=== PATIENT | female | born 1940 | race Caucasian/White ===

== ENCOUNTER → 2018-01-09 08:27 | Outpatient (CLI) | payer MEDICARE, SELFPAY ==
[2018-01-09 10:34] LABS: AST(SGOT) 15 U/L (15-37); Alanine Aminotransfer ALT/SGPT 22 U/L (13-56); Albumin, Serum 3.9 g/dL (3.2-5.0); Alkaline Phosphatase 73 U/L (45-117); Bilirubin, Direct 0.12 mg/dL (0.00-0.30); Cholesterol 96 mg/dL (200); Globulin 3.1 g/dL (2.2-4.2); High Density Lipoprotein 54 mg/dL; Triglycerides 60 mg/dL; Very Low Density Lipoprotein 12 mg/dL (5-40)
== END ==
PROVIDERS: Family Provider Internal Medicine; PCP Internal Medicine; Visit Provider Physician Assistant Medical
DX: E78.5 Hyperlipidemia, unspecified (principal); Z79.899 Other long term (current) drug therapy
CPT/HCPCS: 36415; 80061; 80076

== ENCOUNTER → 2019-02-20 09:53 | Outpatient (CLI) | payer MEDICARE, SELFPAY ==
[2018-02-21 10:02] VITALS: BMI 20.5
[2019-02-20 12:47] LABS: AST(SGOT) 15 U/L (15-37); Alanine Aminotransfer ALT/SGPT 25 U/L (13-56); Albumin, Serum 3.9 g/dL (3.2-5.0); Alkaline Phosphatase 70 U/L (45-117); Bilirubin, Direct 0.13 mg/dL (0.00-0.30); Cholesterol 131 mg/dL (200); Globulin 3.1 g/dL (2.2-4.2); High Density Lipoprotein 59 mg/dL; Triglycerides 57 mg/dL; Very Low Density Lipoprotein 11 mg/dL (5-40)
== END ==
PROVIDERS: Family Provider Internal Medicine; PCP Internal Medicine; Referring Provider Physician Assistant Medical; Visit Provider Physician Assistant Medical
DX: E78.5 Hyperlipidemia, unspecified (principal)
CPT/HCPCS: 36415; 80061; 80076

== ENCOUNTER → 2019-03-31 09:57 | Outpatient (CLI) | payer MEDICARE, SELFPAY ==
[2019-02-25 09:33] VITALS: BMI 22.6
--- NOTE | 2019-03-31 09:59 | ECHOD_ITS ---
Reason For Study: HTN Procedure This was a 2D Doppler, Color Flow transthoracic echocardiogram. Exam performed in department. Left Ventricle Normal LV size. Left ventricular systolic function is normal. The estimated ejection fraction is 60 %. Stage 1 diastolic dysfunction. No regional wall motion abnormalities noted. Right Ventricle Normal RV size. Normal systolic function. Atria Normal left atrium. Normal right atrium. Mitral Valve There is mild to moderate mitral annular calcification. Mild-Moderate (1-2+) eccentric mitral valve insufficiency. Tricuspid Valve Normal tricuspid valve. Mild (1+) tricuspid valve insufficiency. Pulmonary artery systolic pressure is 36 mmHg. Aortic Valve Trisinus/trileaflet aortic valve. Pulmonic Valve The pulmonic valve is not well visualized. Great Vessels Normal aortic root. The pulmonary artery is normal size. Normal inferior vena cava. Pericardium/Pleural No pericardial effusion. MMode/2D Measurements & Calculations LVIDd: 3.7 cm IVSd: 0.86 cm Ao root diam: 2.7 cm LVIDs: 2.0 cm LVPWd: 0.95 cm LA dimension: 3.3 cm RVDd: 2.8 cm FS: 46.4 % LAV(MOD-bp): 53.0 ml LA A4 area: 19.8 cm2 RA A4 area: 14.2 cm2 LAV(MOD-bp) Indexed: 39.9 ml/m2 LAV(MOD-sp2): 44.5 ml LAV(MOD-sp4): 55.5 ml Time Measurements MV dec time: 0.23 sec Doppler Measurements & Calculations MV E max albert: 99.2 cm/sec Lat Peak E' Albert: 6.4 cm/sec Med Peak E' Albert: 4.8 cm/sec MV A max albert: 108.4 cm/sec E/E' lat: 15.5 E/E' med: 20.5 MV E/A: 0.92 MV V2 max: 122.3 cm/sec MV P1/2t max albert: 112.7 cm/sec Ao V2 max: 169.5 cm/sec MV max P.0 mmHg MV P1/2t: 99.7 msec Ao max P.5 mmHg MV V2 mean: 72.1 cm/sec MV dec slope: 331.1 cm/sec2 MV mean P.4 mmHg MVA(P1/2t): 2.2 cm2 MV V2 VTI: 40.3 cm LV V1 max: 90.1 cm/sec PA V2 max: 93.4 cm/sec TR max albert: 281.7 cm/sec LV V1 max P.2 mmHg TR max P.7 mmHg Interpretation Summary Normal LV size. Left ventricular systolic function is normal. The estimated ejection fraction is 60 %. Stage 1 diastolic dysfunction. There is mild to moderate mitral annular calcification. Mild-Moderate (1-2+) eccentric mitral valve insufficiency. Ordering Physician: Arcenio Franklin Referring Physician: Rob Mendoza M.D. Performed By: Ridge Johnson RCS
== END ==
PROVIDERS: Family Provider Internal Medicine; PCP Internal Medicine; Referring Provider Internal Medicine Cardiovascular Disease; Visit Provider Internal Medicine Cardiovascular Disease
DX: I25.10 Atherosclerotic heart disease of native coronary artery without angina pectoris (principal)
CPT/HCPCS: 93306

== ENCOUNTER 2020-05-01 11:08 | Emergency (ER) | payer MEDICARE, SELFPAY ==
[2020-02-26 10:27] VITALS: BMI 21.5
[2020-05-01 11:10] VITALS: BP 144/101; PULSE 81; RESP 17; TEMP 36.7; O2SAT 96; BMI 20.3
--- NOTE | 2020-05-01 11:33 | CT_ITS ---
We are attempting to reach an attending provider to discuss findings. An addendum with communication details will be sent when the communication is complete. STUDY: CT ABDOMEN AND PELVIS WITHOUT CONTRAST REASON FOR EXAM: Female, 79 years old. RT SIDE ABD PAIN X 2 DAYS, ADDITIONAL IMAGES D/T MOTION RADIATION DOSAGE (If Supplied By Facility): CTDIvol = ( 11.53 ) mGy, DLP = ( 413.16 ) mGycm TECHNIQUE: Transaxial images were obtained from the dome of the diaphragm to the symphysis pubis without oral contrast, and without intravenous contrast. Sagittal and coronal images were reconstructed. Individualized dose optimization techniques were used for this CT. COMPARISON: None. FINDINGS: The visualized lung bases are unremarkable. There is decreased attenuation of the liver consistent with steatosis. Normal gallbladder and extrahepatic biliary system. Normal spleen. Normal pancreas. Normal bilateral adrenal glands. Unremarkable right kidney. Unremarkable left kidney. Normal visualized stomach. Normal small intestine. Normal colon. Evaluation of the appendix region is limited by motion artifact. The appendix is enlarged at 9 mm (axial image #66 series 2) and fluid-filled distally. There is no demonstrated periappendiceal stranding. There is atherosclerotic calcifications of the abdominal aorta, Normal urinary bladder. Normal abdominal wall. There are diffuse degenerative changes of the visualized lumbar spine. CT/Abdomen/Pelvis W IV Cont ONLY IMPRESSION: Minimally enlarged appendix at 9 mm. Appendicitis is not excluded. Severe aortoiliac atherosclerosis. Electronically Signed: Marnie Chiang MD at 13:33 EDT Tel , Service support ,
--- NOTE | 2020-05-01 11:38 | ED.VIS.GEN ---
History of Present Illness Chief Complaint: Abd Pain Onset: Yesterday Narrative: 79-year-old female past medical history of hypertension, hyperlipidemia, type 2 diabetes, CAD with stents presents with complaints of abdominal pain. The last 2 mornings she has had right lower abdominal pain that radiates to the side. Pain feels cramping. It started again this morning on awakening. While she was having a bowel movement she felt nauseous. She states she is typically constipated and takes a stool softener. She has decreased appetite today and has not eaten anything. She is keeping down fluids. Denies fevers, chills, vomiting, cough, chest pain, shortness of breath, urinary symptoms, or blood in stool. Previous abdominal surgery includes tubal ligation. Past Medical History - Allergies and Home Meds Allergies/Adverse Reactions: Allergies amoxicillin Allergy (Verified 05/01/20 11:09) Unknown codeine Allergy (Verified 05/01/20 11:09) Unknown estradiol Allergy (Verified 05/01/20 11:09) Other Primary Care Physician: Rob Mendoza MD [Primary Care Provider] - Past Medical History: - - Pretension, hyperlipidemia, CAD, type 2 diabetes Smoking Status: Former smoker Review of Systems General: Denies: Chills, Fever, Sweats Eyes: Denies: Visual changes - bilaterally, Diplopia ENT: Denies: Rhinorrhea, Sore throat Cardiovascular: Denies: Chest pain, Palpitations Respiratory: Denies: Dyspnea, Cough, Dyspnea on exertion Gastrointestinal: Reports: Abdominal pain, Nausea, Constipation. Denies: Vomiting, Diarrhea, Melena, Hematochezia Genitourinary: Denies: Dysuria, Hematuria, Frequency Musculoskeletal: Denies: Myalgias Skin: Denies: Rash Neurological: Denies: Headache, Weakness Psych: Reports: Depression Physical Exam Vital Signs/Narrative: Vital Signs Temp Pulse Resp BP Pulse Ox 05/01/20 11:10 98.0 F 81 17 144/101 H 96 Inital Vital Signs reviewed: Yes General: Well nourished, Well developed, No Acute Distress Head: Normocephalic, Atraumatic Eyes: Perrl, EOMI ENT: Moist mucous membranes, No rhinorrhea Neck: Supple, Nontender Cardiovascular: Regular rate, Regular rhythm, No murmurs Respiratory: No distress, CTA bilaterally, Chest nontender Abdomen: Soft, Tender, - - Mild right lower quadrant tenderness. Soft with no guarding or rebound. Negative for: Guarding, Rebound tenderness Back: Normal Inspection Extremities: No edema Skin: Normal color, No rash Neurological: Alert, Oriented x3, Cranial nerves II-XII grossly intact Psychological: Normal affect, Normal Mood Diagnostic/Tx/Re-eval Clinical Impression(s) from Imaging Studies Abdomen/Pelvis CT 05/01/20 11:33 IMPRESSION: Minimally enlarged appendix at 9 mm. Appendicitis is not excluded. Severe aortoiliac atherosclerosis. Electronically Signed: Marnie Chiang MD at 13:33 EDT Tel , Service support , ADDENDUM: 05/01/20 1345 IMPRESSION: Minimally enlarged appendix at 9 mm. Appendicitis is not excluded. Severe aortoiliac atherosclerosis. N.B. : The above information has been verbally conveyed by Marnie Chiang MD to RICHARD Del [place], on 05/01/2020 13:38:07 (ET). Electronically Signed: Marnie Chiang MD at 13:33 EDT Tel , Service support , Abdomen CT 05/01/20 14:04 IMPRESSION: 1. Normal CT appearance of the appendix (no appendiceal wall thickening, normal contrast filling, no periappendiceal stranding). Electronically Signed: Rafa Medina MD ([place]) at 16:45 EDT , Service support , Laboratory Data 05/01/20 05/01/20 05/01/20 12:10 12:16 12:16 WBC 9.6 RBC 4.46 Hgb 15.3 H Hct 44.6 MCV 100.0 H MCH 34.3 H MCHC 34.3 RDW Std Deviation 47.7 H RDW Coeff of Louise 12.8 Plt Count 341 MPV 9.4 Immature Gran % (Auto) 0.400 Neut % (Auto) 79.0 H Lymph % (Auto) 15.0 L [place] % (Auto) 4.7 Eos % (Auto) 0.5 Baso % (Auto) 0.4 Absolute Neuts (auto) 7.6 Absolute Lymphs (auto) 1.44 Nucleated RBC % 0 Sodium 136 Potassium 3.8 Chloride 99 Carbon Dioxide 30.0 Anion Gap 7 BUN 10 Creatinine 0.62 Estim Creat Clear Calc 32.87 Est GFR (MDRD) Af Amer 119 Est GFR (MDRD) Non-Af 99 BUN/Creatinine Ratio 16.1 Glucose 159 H Calcium 9.7 Total Bilirubin 0.40 AST 13 L ALT 19 Alkaline Phosphatase 81 Total Protein 7.8 Albumin 4.0 Globulin 3.8 Albumin/Globulin Ratio 1.1 Lipase 79 Urine Color Yellow Urine Clarity Clear Urine pH 7.0 Ur Specific [place] 1.005 Urine Protein Negative Urine Glucose (UA) Normal Urine Ketones Negative Urine Occult Blood Negative Urine Nitrite Negative Urine Bilirubin Negative Urine Urobilinogen Normal Ur Leukocyte Esterase Negative Urine RBC 0-5 SEEN Urine WBC 0 SEEN Ur Squamous Epith Cells 0-5 SEEN Urine Bacteria 0 SEEN Urine Mucus 0 SEEN POC Glucose 05/01/20 13:07 WBC RBC Hgb Hct MCV MCH MCHC RDW Std Deviation RDW Coeff of Louise Plt Count MPV Immature Gran % (Auto) Neut % (Auto) Lymph % (Auto) [place] % (Auto) Eos % (Auto) Baso % (Auto) Absolute Neuts (auto) Absolute Lymphs (auto) Nucleated RBC % Sodium Potassium Chloride Carbon Dioxide Anion Gap BUN Creatinine Estim Creat Clear Calc Est GFR (MDRD) Af Amer Est GFR (MDRD) Non-Af BUN/Creatinine Ratio Glucose Calcium Total Bilirubin AST ALT Alkaline Phosphatase Total Protein Albumin Globulin Albumin/Globulin Ratio Lipase Urine Color Urine Clarity Urine pH Ur Specific [place] Urine Protein Urine Glucose (UA) Urine Ketones Urine Occult Blood Urine Nitrite Urine Bilirubin Urine Urobilinogen Ur Leukocyte Esterase Urine RBC Urine WBC Ur Squamous Epith Cells Urine Bacteria Urine Mucus POC Glucose 146 H - Medical Decision Making Patient appears well and nontoxic. Vital signs within normal limits. She has RLQ tenderness on exam but no peritoneal signs. Labs show no leukocytosis or bands and are otherwise unremarkable. CT shows minimally enlarged appendix at 9 mm and cannot exclude appendicitis. Results were discussed with general surgery who felt that with minimal pain and no WBC count this may not be appendicitis. She does have a large stool burden and admits to constipation but did have a BM this morning. Surgery recommended CT with oral contrast which will be obtained. CT showed normal appearance of the appendix. Her pain may be due to constipation as there was a moderate stool burden on CT. She was given magnesium citrate and advised to follow up with PCP. Discussed return precautions. She was agreeable and discharged in stable condition. ED Disposition - Plan for ED Patient: Disposition: Home or Assisted Living Diagnosis: Abdominal pain, Constipated Instructions: ED Abdominal Pain Unkn Cause Fem, ED Constipation Prescriptions: Magnesium Citrate [Citrate Of Magnesia] 300 ml PO X1 #300 ml Transmission Status: Received by [id number] Referrals: Rob Mendoza MD [Primary Care Provider] -
[2020-05-01 12:13] VITALS: RESP 17
[2020-05-01 12:30] LABS: Absolute Lymphocyte Count 1.44 X10^3/uL (0.83-4.51); Absolute Neutrophil Count 7.6 X10^3/uL (2.0-7.7); Basophil# 0.04 X10^3/uL; Basophil% 0.4 % (0-1); Eosinophil# 0.05 X10^3/uL; Eosinophils% 0.5 % (0-5); Hematocrit 44.6 % (37-47); Hemoglobin 15.3 g/dL (12.0-15.0); Lymphocyte # 1.44 X10^3/ul (4.0); Mean Corp Hgb Conc 34.3 g/dL (32-36); Mean Corpuscular Hgb 34.3 pg (27.0-32.0); Mean Platelet Vol. 9.4 fl (6.2-12.0); Monocyte# 0.45 X10^3/uL; Monocyte% 4.7 % (0-10); NRBC Flagged by Analyzer 0 % (0-5); Platelet Count 341 K/mm3 (150-450); RBC Distribution Width CV 12.8 % (11.6-14.6); RBC Distribution Width SD 47.7 fl (35.1-43.9); Red Blood Count 4.46 M/mm3 (4.2-5.4); White Blood Count 9.6 K/mm3 (4.4-11.0)
[2020-05-01 12:45] LABS: ALB/GLOB Ratio 1.1 RATIO (0.9-2.4); AST(SGOT) 13 U/L (15-37); Alanine Aminotransfer ALT/SGPT 19 U/L (13-56); Alkaline Phosphatase 81 U/L (45-117); Anion Gap 7 (5-15); BUN 10 mg/dL (7-18); BUN/Creat Ratio 16.1 RATIO (10-20); Calcium,Total 9.7 mg/dL (8.5-10.1); Chloride 99 mmol/L (98-107); Creatinine, Serum 0.62 mg/dL (0.55-1.02); EST Glomerular Filtration Rate 99 mL/min (>60); Est Glom Filt Rate - Afr Amer 119 mL/min (>60); Estimated Creatinine Clearance 32.87 ml/min; Globulin 3.8 g/dL (2.2-4.2); Glucose 159 mg/dL (74-106); Lipase 79 U/L (73-393); Potassium 3.8 mmol/L (3.5-5.1); Protein, Total 7.8 g/dL (6.4-8.2); Sodium Level 136 mmol/L (136-145)
[2020-05-01 13:11] LABS: Bedside Glucose 146 mg/dL (70-110)
[2020-05-01 13:22] LABS: Bacteria 0 SEEN /hpf (None Seen); Mucous, Urine 0 SEEN /hpf (<or=2+); White Blood Cells 0 SEEN /hpf (0-5)
[2020-05-01 13:49] LABS: Color, Urine Yellow (Yellow); Glucose, Dipstick Normal (Normal); Ketone-Dipstick Negative (Negative); Leukocyte Esterase-Dipstick Negative /ul (Negative); Nitrite-Dipstick Negative (Negative); Occult Blood-Urine Negative /ul (Negative); Protein-Dipstick Negative (Negative); Specific Gravity, Urine 1.005 (1.002-1.030); Urine Bilirubin Dipstick Negative (Negative); Urine Clarity Clear (Clear); Urine Urobilinogen Normal (Normal)
[2020-05-01 13:56] LABS: Red Blood Cells-Urine 0-5 SEEN /hpf (0-5); Squamous Epithelial Cells - UA 0-5 SEEN /hpf (5-10)
--- NOTE | 2020-05-01 14:04 | CT_ITS ---
STUDY: CT ABDOMEN AND PELVIS WITHOUT CONTRAST REASON FOR EXAM: Female, 79 years old. R/O APPY, PLEASE COMPARE TO PRIOR SCAN DONE TODAY RADIATION DOSAGE (If Supplied By Facility): CTDIvol = ( 6.04 ) mGy, DLP = ( 232.51 ) mGycm TECHNIQUE: Transaxial images were obtained from the dome of the diaphragm to the symphysis pubis with oral contrast, and without intravenous contrast. Sagittal and coronal images were reconstructed. Individualized dose optimization techniques were used for this CT. COMPARISON: None. FINDINGS: The visualized lung bases are unremarkable. The visualized portions of the heart are within normal limits. Normal liver. Normal gallbladder and extrahepatic biliary system. Normal spleen. Normal pancreas. Normal bilateral adrenal glands. Normal right kidney. Normal left kidney. Normal visualized stomach. Normal small intestine. Normal colon. Normal caliber of the appendix measuring 6.3 mm, filled with contrast and air. No periappendiceal stranding. There is diffuse atherosclerotic calcification of the abdominal aorta, without a demonstrated aneurysm. Normal inferior vena cava. Normal retroperitoneum. Normal urinary bladder. There is atrophy of the uterus. Normal abdominal wall. There degenerative changes of the lumbar spine. CT/Abdomen/Pel W ORAL Cont Only IMPRESSION: 1. Normal CT appearance of the appendix (no appendiceal wall thickening, normal contrast filling, no periappendiceal stranding). Electronically Signed: Rafa Medina MD ([place]) at 16:45 EDT , Service support ,
[2020-05-01 16:49] VITALS: BP 187/67; PULSE 80; RESP 17; TEMP 36.8; O2SAT 96
[2020-05-01 17:26] VITALS: BP 187/75; PULSE 80; RESP 17; O2SAT 96
== END 2020-05-01 17:28 | disposition home or self-care (01) ==
PROVIDERS: Emergency Provider Physician Assistant; PCP Internal Medicine
DX: R10.9 Unspecified abdominal pain (principal); K59.00 Constipation, unspecified; I25.10 Atherosclerotic heart disease of native coronary artery without angina pectoris; Z95.5 Presence of coronary angioplasty implant and graft; Z87.891 Personal history of nicotine dependence
CPT/HCPCS: 74176; 74177; 80053; 81001; 82962; 83690; 85025; 99284; Q9967; A4216

== ENCOUNTER → 2020-06-08 08:45 | Outpatient (CLI) | payer MEDICARE, SELFPAY ==
--- NOTE | 2020-06-08 08:47 | RAD_ITS ---
STUDY: X-RAY - ESOPHAGUS (BARIUM SWALLOW) with FLUOROSCOPY REASON FOR EXAM: Female, 80 years old. Dysphagia TECHNIQUE: 16 view(s) of the esophagus were obtained following swallowing of barium. FLUOROSCOPY TIME (if supplied): (0:26) minutes/seconds COMPARISON: None. FINDINGS: There is no demonstrated esophageal foreign body. There is no demonstrated stricture or mucosal abnormality. Normal gastroesophageal junction, without a demonstrated hiatal hernia. The patient ingested a 12 mm tablet of barium without any difficulty. There is atherosclerotic calcification of the aortic arch with tortuosity of the descending aorta. Normal visualized pulmonary parenchyma. There are degenerative changes of the visualized thoracic spine. RAD/Esophagus Single Contrast IMPRESSION: Normal plain film x-ray examination (barium swallow) of the esophagus. Electronically Signed: Gus Odom, at 15:19 EDT , Service support ,
== END ==
PROVIDERS: PCP Internal Medicine; Referring Provider Nurse Practitioner Adult Health; Visit Provider Nurse Practitioner Adult Health
DX: R13.10 Dysphagia, unspecified (principal); K21.9 Gastro-esophageal reflux disease without esophagitis
CPT/HCPCS: 74220

== ENCOUNTER → 2020-08-19 12:53 | Outpatient (CLI) | payer MEDICARE, SELFPAY ==
--- NOTE | 2020-08-19 12:55 | CDU_ITS ---
Reason For Study: Carotid stenosis Rt. Velocities/BP Lt. Velocities/BP Prox CCA 63/9.5 cm/sec. Prox CCA 68.3/9 cm/sec. Mid CCA 55.2/9.5 cm/sec. Mid CCA 64.8/9 cm/sec. Dist CCA 44.3/10.2 cm/sec. Dist CCA 50/9.9 cm/sec. Prox ICA 86.4/18.8 cm/sec. Prox ICA 138.9/20.4 cm/sec. Mid ICA 56.4/14.6 cm/sec. Mid ICA 73.6/15.2 cm/sec. Dist ICA 58.6/14.6 cm/sec. Dist ICA 48.2/12. cm/sec. Rt. ICA/CCA = 1.6. Lt. ICA/CCA = 2.14. Prox ECA 155.8/7.9 cm/sec. Prox ECA 147.7 cm/sec. Rt. Vert. 29/5.5 cm/sec. Lt. Vert. 28.4/5.2 cm/sec. Right Extracranial There is homogeneous, smooth atherosclerotic plaque noted in the right common carotid artery. There is heterogeneous, irregular atherosclerotic plaque noted in the right internal carotid artery. There is heterogeneous, irregular atherosclerotic plaque noted in the right external carotid artery. Antegrade flow is noted in the right vertebral artery. Left Extracranial There is heterogeneous, irregular atherosclerotic plaque noted in the left common carotid artery. There is heterogeneous, irregular atherosclerotic plaque noted in the left internal carotid artery. The atherosclerotic plaque causes acoustic shadowing. There is heterogeneous, irregular atherosclerotic plaque noted in the left external carotid artery. Antegrade flow is noted in the left vertebral artery. Procedure Carotid Duplex 24211. This is a Carotid Duplex examination using B-mode, color flow and specral Doppler. Exam performed in department. Interpretation Summary Irregular calcific plaque at the proximal right internal and external carotid arteries Less than 50% stenosis right internal carotid artery Less than 50% stenosis right external carotid artery Irregular calcific plaque distal left common carotid artery and proximal left internal and external carotid arteries with acoustic shadowing. 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 Performed By: Wendy Georges RVT
== END ==
PROVIDERS: PCP Internal Medicine; Referring Provider Internal Medicine Cardiovascular Disease; Visit Provider Internal Medicine Cardiovascular Disease
DX: I65.29 Occlusion and stenosis of unspecified carotid artery (principal); I25.10 Atherosclerotic heart disease of native coronary artery without angina pectoris; E78.5 Hyperlipidemia, unspecified; I10 Essential (primary) hypertension; R42 Dizziness and giddiness
CPT/HCPCS: 93880

== ENCOUNTER → 2020-11-20 10:10 | Outpatient (CLI) | payer MEDICARE, SELFPAY ==
[2020-11-20 11:54] LABS: AST(SGOT) 22 U/L (15-37); Alanine Aminotransfer ALT/SGPT 29 U/L (13-56); Albumin, Serum 3.9 g/dL (3.2-5.0); Alkaline Phosphatase 73 U/L (45-117); Bilirubin, Direct 0.15 mg/dL (0.00-0.30); Cholesterol 121 mg/dL (200); Globulin 3.9 g/dL (2.2-4.2); High Density Lipoprotein 52 mg/dL; Protein, Total 7.8 g/dL (6.4-8.2); Triglycerides 75 mg/dL; Very Low Density Lipoprotein 15 mg/dL (5-40)
== END ==
PROVIDERS: PCP Internal Medicine; Visit Provider Nurse Practitioner Family
DX: E78.00 Pure hypercholesterolemia, unspecified (principal); E78.5 Hyperlipidemia, unspecified
CPT/HCPCS: 36415; 80061; 80076

== ENCOUNTER 2021-07-27 10:45 | Emergency (ER) | payer MEDICARE, SELFPAY ==
[2021-07-27 10:46] VITALS: BP 154/78; PULSE 85; RESP 16; TEMP 36.2; O2SAT 97; BMI 19.1
[2021-07-27] MEDS: Lidocaine 1% /Epi 1:100 (20ml) 20 ML Vial INFILT (11:08)
--- NOTE | 2021-07-27 11:09 | EDS_ITS ---
HPI History of Present Illness Chief Complaint: Laceration Detail of Chief Complaint: Laceration left thumb Informant: patient Narrative Narrative: Patient presents to the emergency department complaint of a laceration to her left thumb that occurred yesterday morning. Patient states that she was using scissors and accidentally cut herself. Patient is right-hand dominant. She is unsure of her last tetanus shot. Patient states that she used peroxide on her finger and then used Magic skin glue to try to approximate the wound edges and applied a dressing. Patient woke up this morning and thought it was still bleeding so she comes in for evaluation. Patient states she is on aspirin and Plavix for history of coronary artery disease. [facility] Medical History (Updated 07/27/21 @ 11:[address] Alexx Valdez, ) Atherosclerotic heart disease of [place] coronary artery without angina pectoris Carotid artery stenosis Constipation Diabetes Essential (primary) hypertension HLD (hyperlipidemia) Rash Home Medications aspirin 81 mg PO DAILY@0800 11/24/16 [History Last Taken Unknown] lorazepam 0.5 mg PO DAILY PRN PRN 11/24/16 [History Last Taken Unknown] nitroglycerin 0.4 mg sublingual tablet 0.4 mg SUBLINGUAL Q5-15M PRN #30 tab 02/21/18 [Rx Last Taken Unknown] diclofenac potassium 50 mg tablet 50 mg PO BID tab 02/26/20 [History Last Taken Unknown] famotidine 40 mg tablet 40 mg PO BID tab 02/26/20 [History Last Taken Unknown] magnesium citrate 300 ml PO X1 #300 ml 05/01/20 [Rx Last Taken Unknown] amlodipine 5 mg tablet 5 mg PO BID #180 tab 12/16/20 [Rx Last Taken Unknown] ezetimibe 10 mg tablet 10 mg PO DAILY #90 tab 02/04/21 [Rx Last Taken Unknown] melatonin 5 mg capsule mg PO QHS PRN cap 02/22/21 [History Last Taken Unknown] clopidogrel 75 mg tablet 75 mg PO DAILY #90 tab 03/08/21 [Rx Last Taken Unknown] lisinopril 20 mg tablet See Rx Instructions .ROUTE .COMPLEX #180 tab 06/13/21 [Rx Last Taken Unknown] metformin 1,000 mg tablet 1,000 mg PO BID 06/17/21 [History Last Taken Unknown] atenolol 50 mg tablet 50 mg PO DAILY #90 tab 06/28/21 [Rx Last Taken Unknown] isosorbide mononitrate 30 mg tablet,extended release 24 hr See Rx Instructions .ROUTE .COMPLEX #90 tab 07/11/21 [Rx Last Taken Unknown] atorvastatin 40 mg tablet 40 mg PO QHS #90 tab 07/13/21 [Rx Last Taken Unknown] Allergy/AdvReac Type Severity Reaction Status Date / Time amoxicillin Allergy Unknown Verified 07/27/21 10:46 codeine Allergy Unknown Verified 07/27/21 10:46 estradiol Allergy Other Verified 07/27/21 10:46 Family History Father CAD (coronary artery disease) Diabetes Mother CAD (coronary artery disease) CVA (cerebral vascular accident) Diabetes Sister Diabetes CAD (coronary artery disease) Brother CAD (coronary artery disease) Surgical History History of coronary angioplasty (1996) History of coronary artery stent placement (12/26/05) Social History Smoking Status: Current some day smoker tobacco type: cigarettes ROS ROS ED Constitutional Constitutional ED: Reports systems reviewed and no addt'l complaints, except as documented; Denies body ache(s), change in weight or chills Eyes Eyes: Denies acute decrease in peripheral vision, change in vision, double vision or loss of vision ENT ENT ED: Reports none; Denies ear pain, lip swelling, loss taste/smell, neck pain, otalgia or sore throat Cardiovascular Cardiovascular: Reports none; Denies abdominal pain, chest pain with activity, leg edema, lightheadedness, palpitations, rapid heart rate or syncope Respiratory/Chest Respiratory/Chest: Reports none; Denies change in mental status, dry cough, dyspnea, hemoptysis, shortness of breath at rest or shortness of breath with exertion Gastrointestinal Gastrointestinal: Reports none; Denies abdominal pain, change in stool character, diarrhea, hematemesis, hematochezia, melena, rectal bleeding or vomiting Genitourinary Genitourinary ED: Reports none; Denies abdominal discomfort, anuria, dysuria, genital pain or polyuria Musculoskeletal Musculoskeletal: Reports none and other Details: Left thumb skin laceration ; Denies arthralgias, back pain, difficulty walking, extremity pain, muscle weakness or myalgias Integumentary Reports none; Denies abscess or rash Neurologic Neurologic: Reports none; Denies abnormal gait, confusion, focal weakness, frequent falls, headache(s), loss of vision, numbness, paresthesias, radicular pain, vertigo or weakness Psychiatric Psychiatric: Reports systems reviewed and no addt'l complaints, except as documented and none; Denies behavioral changes, confusion, difficulty concentrating, hallucinations, suicidal ideation, tactile hallucinations or visual hallucinations Endocrine Endocrinology: Denies none, cold intolerance, excessive sweating, fatigue or heat intolerance Hematologic/Lymphatic Hematologic/Lymphatic: Reports none; Denies anemia, easy bleeding or easy bruising Allergic/Immunologic Allergic/Immunologic ED: Denies as per HPI, none, lip swelling, mouth swelling, throat swelling, tongue swelling or hives EXAM Physical Exam Const Vital Signs: 07/27/21 10:46 Temperature 97.2 F L Temperature Source Temporal Pulse Rate 85 Respiratory Rate 16 Blood Pressure 154/78 H Blood Pressure Mean 103 Pulse Ox 97 Oxygen Delivery Method Room Air Positive well nourished and well developed General Appearance ED: well developed and NAD HEENT Reports TM's clear and moist mucous membranes normocephalic and atraumatic; Negative for trauma or tenderness Tympanic Membrane ED: Yes TM's clear Eyes PERRL and EOMs intact bilaterally General Eye ED: Negative for pale conjunctiva or scleral icterus Neck no lymphadenopathy, supple and no JVD General: Negative for tenderness Chest Wall inspection of chest normal and palpation of chest normal Chest: Negative for tenderness Resp normal respiratory effort and clear to auscultation bilaterally Effort and Inspection: Negative for respiratory distress or pain with movement Auscultation: Negative for rhonchi, wheezes or diminished lung sounds Cardio regular rate, regular rhythm, S1 normal heart sound, S2 normal heart sound and no murmurs Peripheral Pulses: pulses 2+ throughout GI normal to inspection, nondistended, normoactive bowel sounds, soft to palpation, non-tender, non-distended and no masses Back/Spine no CVA tenderness and no thoracic nor lumbar tenderness Extremity Extremity Narrative: Evaluation of the left thumb does reveal initially she had a dressing on it that was saturated with blood and this was removed. Skin was cleansed with saline. She has a 8 mm laceration over the dorsum of the IP joint of the thumb that appears to be superficial and really does not gape however just oozes small amount of blood. She has normal strength in extension and flexion of the thumb against resistance. Neurovascularly intact distally. General Extremety ED: Negative for edema General Extremity: Negative for edema Neuro oriented x3, CN's II-XII intact bilaterally, no sensory deficits noted and gait normal Sensorium / Orientation: awake, alert, oriented to person, oriented to place and oriented to time Motor Exam: strength 5/5 throughout and strength abnormal Psych mental status grossly normal Skin no rashes or lesions noted and no wounds MDM MDM MDM Narrative Medical decision making narrative: Skin of the left thumb at site of laceration and infiltrated with 1% lidocaine with epinephrine total of 2 cc. Pressure was applied and good hemostasis was obtained. Clean dressing was applied. The laceration is old and not amenable to repair. Patient received a tetanus booster. Patient advised to follow-up with primary care physician 3 to 5 days for wound check. She is to return if increasing pain, redness, swelling, purulent drainage, or conditions worsen anyway. Discharge Plan Triage Chief Complaint: Laceration ED Provider: Alexx Valdez Dx/Rx/DC Orders Clinical Impression: Laceration of left thumb Instructions: ED Laceration, Old: Not Sutured Prescriptions: No Action nitroglycerin 0.4 mg tablet, sublingual 0.4 mg SUBLINGUAL Q5-15M PRN (Reason: chest pain) Qty: 30 RF: 1 diclofenac potassium 50 mg tablet 50 mg PO BID RF: 0 famotidine 40 mg tablet 40 mg PO BID RF: 0 melatonin 5 mg capsule PO QHS PRNRF: 0 lorazepam 0.5 MG tablet 0.5 mg PO DAILY PRN PRN (Reason: Pain) RF: 0 aspirin 81 MG tablet,chewable 81 mg PO DAILY@0800 RF: 0 magnesium citrate 300 ML solution 300 ml PO X1 Qty: 300 RF: 0 amlodipine 5 mg tablet 5 mg PO BID Qty: 180 RF: 3 ezetimibe [Zetia] 10 mg tablet 10 mg PO DAILY Qty: 90 RF: 3 clopidogrel 75 mg tablet 75 mg PO DAILY Qty: 90 RF: 3 lisinopril 20 mg tablet See Rx Instructions .ROUTE .COMPLEX Qty: 180 RF: 3 metformin 1,000 mg tablet 1,000 mg PO BID RF: 0 atenolol 50 mg tablet 50 mg PO DAILY Qty: 90 RF: 3 isosorbide mononitrate 30 mg tablet extended release 24 hr See Rx Instructions .ROUTE .COMPLEX Qty: 90 RF: 3 atorvastatin 40 mg tablet 40 mg PO QHS Qty: 90 RF: 3 Primary Care Provider: Rob Mendoza Referrals: Rob Mendoza MD [Primary Care Provider] - 3-5 Days Disposition Disposition: Home, Self Care
[2021-07-27] MEDS: Diphth,Pertuss(Acell),Tet Vac 0.5 ML Vial IM (11:11)
[2021-07-27 11:23] VITALS: PULSE 85; RESP 17; O2SAT 96
== END 2021-07-27 11:29 | disposition home or self-care (01) ==
LOC: ED 11:28
PROVIDERS: Emergency Provider Emergency Medicine; PCP Internal Medicine
DX: S61.012A Laceration without foreign body of left thumb without damage to nail, initial encounter (principal); I25.10 Atherosclerotic heart disease of native coronary artery without angina pectoris; F17.210 Nicotine dependence, cigarettes, uncomplicated; Z79.899 Other long term (current) drug therapy; W26.8XXA Contact with other sharp object(s), not elsewhere classified, initial encounter
CPT/HCPCS: 90471; 90715; 99283

== ENCOUNTER 2021-10-25 15:36 | Outpatient (CLI) | payer MEDICARE, SELFPAY ==
--- NOTE | 2021-10-25 | EGD_PTH ---
PATIENT: VASHTI SALEEM LOC: [facility]#:[id number] AGE/SX: 81/F ROOM: RE10/25/[address]: Dr. Sadiq Duenas MD : 1940 BED: DIS: 10/25/2021 SPEC #: [id number] RECD: 10/25/21 15:36 STATUS: MALORIE RE #: [id number] MARIO: 10/25/21 00:[address]: Sadiq Duenas DEPT: SURGICAL PATHOLOGY RECD BY: Eda Butler ENTERED: 10/26/21 08:57 SP TYPE: EGD BIOPSY OTHR DR: Dr. Rob Mendoza MD Tissues: A - Jejunum, NOS B - Duodenum, NOS C - Gastric mucous membrane D - Esophagus, NOS E - Esophagus, NOS F - Ileum, NOS G - Cecum, NOS H - Descending colon I - Rectum, NOS Procedures: Trichrome (control) Special Stain Group II Surgery Specimen Level IV Alcian Blue/PAS (control) HEADER OPERATION: EGD / colonoscopy PRE-OP DIAGNOSIS: Weight loss, dysphagia, diarrhea TISSUE SUBMITTED: A ? Jejunal biopsy, B ? Duodenal biopsy, C ? Antral biopsy H/H, D ? Distal esophageal biopsy, E ? Mid esophageal biopsy, F ? Terminal ileum biopsy, G ? Random cecal biopsies, H ? Random descending colon biopsies, I ? Rectal polyp MICROSCOPIC DIAGNOSIS A. Jejunum biopsy: No pathologic change. B. Duodenum, biopsy: Mild nonspecific chronic inflammation. C. Gastric antrum, biopsy: Minimal chronic inflammation. See comment. D. Distal esophagus, biopsy: Focal changes of reflux. See comment. E. Mid esophagus, biopsy: No pathologic change. F. Terminal ileum, biopsy: No pathologic change. G. Cecum, random biopsy: Collagenous colitis. See comment. H. Descending colon, random biopsy: Collagenous colitis. See comment. I. Rectal polyp, biopsy: Colonic mucosa with focal hyperplastic change. AM:liz 10/27/2021 COMMENT C. The results of immunohistochemistry for Helicobacter pylori will be reported separately ([id number]). D. Alcian blue/PAS stain with matched control supports the above diagnosis. There is no evidence of goblet cell metaplasia. G & H. Trichrome stain with matched control was used in the evaluation of this case. MICROSCOPIC DESCRIPTION Slides are reviewed. GROSS DESCRIPTION A - Received in fixative is one container labeled with the patient's name and designated jejunal biopsy. The specimen consists of multiple irregular fragments of light dow soft tissue that in aggregate measure 0.6 x 0.5 x 0.1 cm. The specimen is totally submitted in one cassette. B - Received in fixative is one container labeled with the patient's name and designated duodenal biopsy. The specimen consists of multiple irregular fragments of light dow soft tissue that in aggregate measure 0.6 x 0.3 x 0.1 cm. The specimen is totally submitted in one cassette. C - Received in fixative is one container labeled with the patient's name and designated antral biopsy. The specimen consists of one irregular fragment of light dow soft tissue that measures 0.5 x 0.5 x 0.1 cm. The specimen is totally submitted in one cassette. D - Received in fixative is one container labeled with the patient's name and designated distal esophagus biopsy. The specimen consists of one irregular fragment of light dow soft tissue that measures 0.5 x 0.3 x 0.1 cm. The specimen is totally submitted in one cassette. E - Received in fixative is one container labeled with the patient's name and designated mid esophagus biopsy. The specimen consists of one irregular fragment of light dow soft tissue that measures 0.5 x 0.5 x 0.1 cm. The specimen is totally submitted in one cassette. F - Received in fixative is one container labeled with the patient's name and designated terminal ileum biopsy. The specimen consists of two irregular fragments of light dow soft tissue that in aggregate measure 0.8 x 0.5 x 0.1 cm. The specimen is totally submitted in one cassette. G - Received in fixative is one container labeled with the patient's name and designated random cecal biopsy. The specimen consists of multiple irregular fragments of light dow soft tissue that in aggregate measure 1 x 0.5 x 0.1 cm. The specimen is totally submitted in one cassette. H - Received in fixative is one container labeled with the patient's name and designated random descending colon biopsy. The specimen consists of multiple irregular fragments of light dow soft tissue that in aggregate measure 1 x 0.3 x 0.1 cm. The specimen is totally submitted in one cassette. I - Received in fixative is one container labeled with the patient's name and designated rectal polyp. The specimen consists of one irregular fragment of light dow soft tissue that measures 0.5 x 0.5 x 0.1 cm. The specimen is totally submitted in one cassette. / AM:liz 10/26/2021 TC:3 CPT: 74594 x9, 74920 x3
--- NOTE | 2021-10-25 | IMM_PTH ---
PATIENT: VASHTI SALEEM LOC: [facility] U#:[id number] AGE/SX: 81/F ROOM: RE10/25/[address]: Dr. Sadiq Duenas MD : 1940 BED: DIS: 10/25/2021 SPEC #: [id number] RECD: 10/26/21 14:03 STATUS: [place] REQ #: [id number] MARIO: 10/25/21 00:[address]: Sadiq Duenas DEPT: IMMUNOHISTOCHEMISTRY RECD BY: Nirmala Mendoza ENTERED: 10/26/21 14:04 SP TYPE: IMMUNO OTHR DR: Dr. Rob Mendoza MD Tissues: C - Stomach, NOS Procedures: H Pylori (initial) PHYSICIAN & INSTITUTION [place] [id number] SPECIMEN INFORMATION: Tissue Source: C ? Antral biopsy Clinical Info: Weight loss, dysphagia, diarrhea Specimen Number: [id number] CPT code: 30881 METHODOLOGY: Deparaffinized sections of prefer/formalin-fixed tissue or PAP/DQ stained slides are incubated with monoclonal/polyclonal antibodies/oligonucleotide probes. Localization is made via biotin free immunoperoxidase method. Appropriate controls are performed and reacted as expected. Results on target cell population are indicated in the following table: RESULTS: ANTIBODY / CLONE RESULT Block C H Pylori (polyclonal) negative These tests were developed and their performance characteristics determined by [facility]. They may not have been cleared or approved by the [place]. Food and Drug Administration. The FDA has determined that such clearance or approval is not necessary. INTERPRETATION: C. Antral biopsy: Negative for Helicobacter pylori organisms. AM:liz 10/28/2021
== END 2021-10-25 23:59 | disposition home or self-care (01) ==
LOC: LABSPEC 15:38
PROVIDERS: PCP Internal Medicine; Referring Provider Surgery; Visit Provider Surgery
DX: R63.4 Abnormal weight loss (principal); R13.10 Dysphagia, unspecified; R19.7 Diarrhea, unspecified
CPT/HCPCS: 88305; 88313; 88342

== ENCOUNTER → 2022-02-20 | Outpatient (CLI) | payer MEDICARE, SELFPAY ==
[2022-02-20 12:34] LABS: AST(SGOT) 24 U/L (15-37); Alanine Aminotransfer ALT/SGPT 27 U/L (13-56); Albumin, Serum 3.9 g/dL (3.2-5.0); Alkaline Phosphatase 89 U/L (45-117); Bilirubin, Direct 0.17 mg/dL (0.00-0.30); Cholesterol 169 mg/dL (200); Globulin 3.9 g/dL (2.2-4.2); High Density Lipoprotein 61 mg/dL; Protein, Total 7.8 g/dL (6.4-8.2); Triglycerides 82 mg/dL; Very Low Density Lipoprotein 16 mg/dL (5-40)
== END | disposition home or self-care (01) ==
PROVIDERS: PCP Internal Medicine; Referring Provider Internal Medicine Cardiovascular Disease; Visit Provider Internal Medicine Cardiovascular Disease
DX: I25.10 Atherosclerotic heart disease of native coronary artery without angina pectoris (principal); E78.00 Pure hypercholesterolemia, unspecified
CPT/HCPCS: 36415; 80061; 80076

== ENCOUNTER → 2022-03-28 | Outpatient (CLI) | payer MEDICARE, SELFPAY ==
--- NOTE | 2022-03-28 09:44 | CDU_ITS ---
Reason For Study: Carotid stenosis Rt. Velocities/BP Lt. Velocities/BP Prox CCA 72.1/12.1 cm/sec. Prox CCA 63/10.2 cm/sec. Mid CCA 56.5/12.1 cm/sec. Mid CCA 65.5/12.6 cm/sec. Dist CCA 56.5/16 cm/sec. Dist CCA 61.8/11.4 cm/sec. Prox ICA 73.6/13.3 cm/sec. Prox ICA 141.1/31.4 cm/sec. Mid ICA 67.9/18.8 cm/sec. Mid ICA 115.6/20.6 cm/sec. Dist ICA 82.7/23.7 cm/sec. Dist ICA 70/18.8 cm/sec. Rt. ICA/CCA = 1.46. Lt. ICA/CCA = 2.24. Prox ECA 161.3/17 cm/sec. Prox ECA 145.5/11.6 cm/sec. Rt. Vert. 50.7/9 cm/sec. Lt. Vert. 21/4.8 cm/sec. Right Extracranial There is homogeneous, smooth atherosclerotic plaque noted in the right common carotid artery. There is heterogeneous, irregular atherosclerotic plaque noted in the right internal carotid artery. There is heterogeneous, irregular atherosclerotic plaque noted in the right external carotid artery. Antegrade flow is noted in the right vertebral artery. Left Extracranial There is heterogeneous, irregular atherosclerotic plaque noted in the left common carotid artery. There is heterogeneous, irregular atherosclerotic plaque noted in the left internal carotid artery. The atherosclerotic plaque causes acoustic shadowing. There is heterogeneous, irregular atherosclerotic plaque noted in the left external carotid artery. Antegrade flow is noted in the left vertebral artery. Procedure Carotid Duplex 10258. This is a Carotid Duplex examination using B-mode, color flow and specral Doppler. Exam performed in department. VL/Carotid Duplex Ultrasound Interpretation Summary Irregular calcific plaque with shadowing at the proximal right internal carotid artery with less than 50% stenosis Less than 50% stenosis right external carotid artery Irregular calcific plaque with shadowing at the proximal left internal carotid artery with 50 to 69% stenosis Less than 50% stenosis left external carotid artery Patent and antegrade vertebral arteries bilaterally No change from the previous examination of August 19, 2020 Ordering Physician: Arcenio Franklin Referring Physician: Rob Mendoza M.D. Performed By: Wendy Georges RVT
== END | disposition home or self-care (01) ==
LOC: CVS 09:43
PROVIDERS: PCP Internal Medicine; Referring Provider Internal Medicine Cardiovascular Disease; Visit Provider Internal Medicine Cardiovascular Disease
DX: I65.23 Occlusion and stenosis of bilateral carotid arteries (principal); I25.10 Atherosclerotic heart disease of native coronary artery without angina pectoris
CPT/HCPCS: 93880

== ENCOUNTER → 2022-04-24 | Outpatient (CLI) | payer MEDICARE, SELFPAY ==
--- NOTE | 2022-04-24 11:23 | STRESSREP_ITS ---
Stress Test Report Pharmacologic myocardial perfusion stress test. 81-year-old lady with a history of coronary artery disease. Stress protocol: Resting EKG demonstrates normal sinus rhythm with a rate of 71 bpm normal intervals are noted resting blood pressure is 108/64 mmHg. 0.4 mg of regadenoson was infused per usual protocol followed by rapid intravenous saline flush injection continuous EKG monitoring was performed. The maximum heart rate was 83 bpm which was 58% of max impacted heart rate the maximum workload was 1 metabolic equivalent. At rest there were no ST or T wave changes noted to suggest abnormal flow reserve and at peak infusion nonspecific ST changes were noted with did not meet the criteria for ischemia. No clinical angina was note d. Myocardial perfusion protocol. 11.3 mCi of technetium 99m sestamibi was injected at rest. 0.4 mg of regadenoson was infused per usual protocol. At peak infusion 35.0 mCi of technetium 99m sestamibi was injected stress images were obtained stress and rest images were reconstructed and compared in the short axis vertical long and horizontal long axis. Gated images were also obtained. Perfusion SPECT analysis: Review of the stress images demonstrate normal uptake of tracer noted in all areas of the myocardium. The resting images similarly demonstrate normal uptake of tracer noted in all areas of the myocardium. No areas of reversibility are noted to suggest ischemia and no previous infarct is noted. Gated SPECT analysis: The gated ejection fraction is 78%. Conclusion: Normal pharmacologic myocardial perfusion stress test. Preserved ejection fraction.
== END | disposition home or self-care (01) ==
LOC: CVS 07:12
PROVIDERS: PCP Internal Medicine; Referring Provider Internal Medicine Cardiovascular Disease; Visit Provider Internal Medicine Cardiovascular Disease
DX: I25.10 Atherosclerotic heart disease of native coronary artery without angina pectoris (principal); Z95.5 Presence of coronary angioplasty implant and graft
CPT/HCPCS: 78452; 93017; A9500; A4216; J2785

== ENCOUNTER → 2024-04-11 | Outpatient (CLI) | payer MEDICARE, SELFPAY ==
[2024-04-11 16:08] LABS: AST(SGOT) 21 U/L (15-37); Alanine Aminotransfer ALT/SGPT 23 U/L (13-56); Albumin, Serum 3.7 g/dL (3.2-5.0); Alkaline Phosphatase 86 U/L (45-117); Bilirubin, Direct 0.18 mg/dL (0.00-0.30); Cholesterol 148 mg/dL (200); Globulin 3.5 g/dL (2.2-4.2); High Density Lipoprotein 65 mg/dL; Protein, Total 7.2 g/dL (6.4-8.2); Triglycerides 85 mg/dL; Very Low Density Lipoprotein 17 mg/dL (5-40)
== END | disposition home or self-care (01) ==
LOC: MTLAB 12:50
PROVIDERS: PCP Internal Medicine; Referring Provider Internal Medicine Cardiovascular Disease; Visit Provider Internal Medicine Cardiovascular Disease
DX: E78.00 Pure hypercholesterolemia, unspecified (principal); I25.10 Atherosclerotic heart disease of native coronary artery without angina pectoris
CPT/HCPCS: 36415; 80061; 80076

== ENCOUNTER → 2024-11-03 | Outpatient (CLI) | payer MEDICARE, SELFPAY ==
--- NOTE | 2024-11-03 13:01 | CDU_ITS ---
Reason For Study Reason For Study: Left carotid stenosis Rt. Velocities/BP Lt. Velocities/BP Prox CCA 70.2/11.6 cm/sec. Prox CCA 54.3/13 cm/sec. Mid CCA 51.3/11.6 cm/sec. Mid CCA 65.7/14.4 cm/sec. Dist CCA 52.2/15.4 cm/sec. Dist CCA 57.9/10.9 cm/sec. Prox ICA 82.8/20.1 cm/sec. Prox ICA 122.9/20.6 cm/sec. Mid ICA 63/17.9 cm/sec. Mid ICA 49.3/14.1 cm/sec. Dist ICA 61.9/17.9 cm/sec. Dist ICA 53.5/17.7 cm/sec. Rt. ICA/CCA = 1.61. Lt. ICA/CCA = 1.87. Prox ECA 163.1/20.6 cm/sec. Prox ECA 88.3/6.9 cm/sec. Rt. Vert. 47.2/7.3 cm/sec. Lt. Vert. 19.6/5.1 cm/sec. Right Extracranial There is homogeneous, smooth atherosclerotic plaque noted in the right common carotid artery. There is heterogeneous, irregular atherosclerotic plaque noted in the right internal carotid artery. There is heterogeneous, irregular atherosclerotic plaque noted in the right external carotid artery. Antegrade flow is noted in the right vertebral artery. Left Extracranial There is heterogeneous, irregular atherosclerotic plaque noted in the left common carotid artery. There is heterogeneous, irregular atherosclerotic plaque noted in the left internal carotid artery. There is heterogeneous, irregular atherosclerotic plaque noted in the left external carotid artery. Antegrade flow is noted in the left vertebral artery. Procedure Carotid Duplex 96160. This is a Carotid Duplex examination using B-mode, color flow and specral Doppler. Exam performed in department. VL/Carotid Duplex Ultrasound Interpretation Summary Mild (<50%) stenosis right extracranial internal carotid. Mild (<50%) stenosis left extracranial internal carotid. Patent and antegrade vertebrals bilaterally. Ordering Physician: Alek Oh Referring Physician: Rob Mendoza M.D. Performed By: Wendy Georges RVT
== END | disposition home or self-care (01) ==
LOC: CVS 13:01
PROVIDERS: PCP Internal Medicine; Referring Provider Nurse Practitioner Family; Visit Provider Nurse Practitioner Family
DX: I65.22 Occlusion and stenosis of left carotid artery (principal)
CPT/HCPCS: 93880